=== PATIENT | female | born 1985 | race Caucasian/White ===

== ENCOUNTER 2018-02-04 07:16 | Inpatient (IN) | payer MEDICAID, SELFPAY ==
[2018-02-04 07:59] VITALS: BMI 35.6
[2018-02-04] MEDS ORDERED: Lactated Ringer's 1,000 ML IV ONE (08:02)
[2018-02-04] MEDS ORDERED: Oxytocin 30 UNIT 30 UNITS/500 ML BAG IV ONE (08:06)
[2018-02-04] MEDS ORDERED: Lidocaine 1% Inj (20ml) ONE (08:10)
[2018-02-04] MEDS ORDERED: OXYTOCIN/0.9 % NS 20 UNIT/1,000 ML BAG IV SCH (08:15)
[2018-02-04 08:40] LABS: BASO # 0.1 K/uL (0.0-0.2); BASO % 0.9 % (0.0-2.0); EOS # 0.2 K/uL (0.0-0.7); EOS % 2.2 % (0.0-4.0); LYMPH # 2.2 K/uL (1.0-4.3); LYMPH % 24.2 % (20.0-40.0); MEAN CELL VOLUME 71.3 fl (81.0-99.0); MEAN CORPUSCULAR HEMOGLOBIN 23.2 pg (27.0-31.0); MEAN CORPUSCULAR HGB CONC 32.5 g/dL (33.0-37.0); MEAN PLATELET VOLUME 10.5 fl (7.2-11.7); MONO # 0.6 K/uL (0.0-0.8); MONO % 6.2 % (0.0-10.0); NEUT # 6.1 K/uL (1.8-7.0); NEUT % 66.5 % (50.0-75.0); NRBC % 0.1 % (0.0-0.0); RBC 4.76 Mil/uL (3.80-5.20); RED CELL DISTRIBUTION WIDTH 16.5 % (11.5-14.5); WHITE BLOOD COUNT 9.1 K/uL (4.8-10.8)
[2018-02-04] MEDS ORDERED: Lactated Ringer's 1,000 ML IV SCH (09:30)
[2018-02-04] MEDS ORDERED: Benzocaine/Menthol SPRAY TOP PRN ×2 (13:18→15:26)
--- NOTE | 2018-02-04 13:18 | OBDS ---
DELIVERY PERSONNEL Nurse Lead Electrical Controls Engineer Certified: julia Delivery Doctor: Tammy Donaldson Nurse: julia Principal Technical Writer: LISA Phillips Anesthesiologist: julia Brush Operator: julia Resident: DR Corral MATERNAL INFORMATION Delivery Anesthesia: None Medications in Delivery: pitocin Estimated Blood Loss (ml): 200cc Placenta Cultured: No Maternal Complications: None RN Comments: uneventful to alive baby Boy; 9/9;with completed placenta delivery Provider Comments: at 39.6 delivered viable male infant @ 11:01 via with of 9/9, 3445 gm, over intact perineum. Procedure: of a viable male from cephalic presentation over intact perineum with no lac eration. Infants head delivered in a controlled manner. cried spontaneously and was placed on mother's stomach. Cord was doubled clamped and cut by resident. Placenta was delivered intact spon taneously and three vessel cords was noted. Intravenous fluid 500ml plus [id number] units were given. Cervix and vagina inspected for lacerations and none were noted. Estimated blood loss was 200cc. Case delivered with Dr Christopher MD OB Hospitalist note. Attended with OB fellow and PGY1...agree with note. MAHNDO LABOR SUMMARY EDC: 02/05/2018 00:00 No. Babies in Womb: 1 Attempted: No Labor Anesthesia: None LABOR INFORMATION Onset of Labor: 02/04/2018 06:00 Complete Dilatation: 02/04/2018 10:55 Oxytocin: N/A Group B Beta Strep: Negative Antibiotics # of Doses: 0 Antibiotics Time of Last Dose: na Steroids Given: None Reason Steroids Not Administered: Not Applicable Other Reason Not Administered: na MEMBRANES Membranes Rupture Method: Artificial Membranes Rupture Method: Artificial Rupture of Membranes: 02/04/2018 10:40 Rupture of Membranes: 02/04/2018 10:40 Length of Rupture (hrs): 0.35 Length of Rupture (hrs): 0.35 Amniotic Fluid Color: Clear Amniotic Fluid Color: Bloody Amniotic Fluid Amount: Moderate Amniotic Fluid Amount: Moderate Amniotic Fluid Odor: Normal Amniotic Fluid Odor: Normal STAGES OF LABOR Stage 1 hrs: 4 Stage 1 min: 55 Stage 2 hrs: 0 Stage 2 min: 6 Stage 3 hrs: 0 Stage 3 min: 8 Total Time in Labor hrs: 5 Total Time in Labor min: 9 VAGINAL DELIVERY Episiotomy: None Laceration Extension: N/A Laceration Type: None Other Laceration: na Laceration Repair: na Initial Vag Sponge Count: 6 Final Vag Sponge Count: 6 Initial Vag Sharps Count: 0 Final Vag Sharps Count: 0 Sponge Count Correct: Yes Sharps Count Correct: Yes Count Comment: correct count BABY A INFORMATION Infant Delivery Date/Time: 02/04/2018 11:01 Method of Delivery: Vaginal Born in Route : No : N/A Forceps: N/A Vacuum Extraction: N/A Shoulder Dystocia : No SHOULDER DYSTOCIA BABY A Infant Delivery Date/Time: 02/04/2018 11:01 PRESENTATION/POSITION BABY A Presentation: Cephalic Cephalic Presentation: Vertex Vertex Position: Left Occipital Anterior Breech Presentation: N/A PLACENTA INFORMATION BABY A Placenta Delivery Time : 02/04/2018 11:09 Placenta Method of Delivery: Spontaneous Placenta Status: Delivered SCORES BABY A Heart Rate 1 min: >100 bpm Resp Effort 1 min: Good Cry Reflex Irritability 1 min: Cough or Sneeze or Pulls Away Muscle Tone 1 min: Active Motion Color 1 min: Body [place], Extremities Blue SCORE 1 MIN: 9 Heart Rate 5 min: >100 bpm Resp Effort 5 min: Good Cry Reflex Irritability 5 min: Cough or Sneeze or Pulls Away Muscle Tone 5 min: Active Motion Color 5 min: Body [place], Extremities Blue SCORE 5 MIN: 9 INFORMATION BABY A Gestational Age at Delivery: 39.6 Gestational Status: Term Infant Outcome : Liveborn Condition : Stable Infant Sex: Male IDENTIFICATION/MEDS BABY A ID Band Number: [id number] CORD INFORMATION BABY A No. Cord Vessels: 3 Nuchal Cord : Around Neck x1, Loose Nuchal Cord Other: na True Knot: na Infant Cord pH Baby Arterial: na Infant Cord pH Baby Venous: na Cord Blood Taken: Yes Banking/Donate Info: na Infant Suction: None
--- NOTE | 2018-02-04 13:18 | OBHP ---
Datetime: 02/04/2018 09:15 IP Admit Plan: Admit to unit; Initiate labor protocol Pelvic Type - PN: Adequate Extremities - PN: Normal Abdomen - PN: Normal Back - PN: Not Done Breast - PN: Not Done Lungs - PN: Normal Heart - PN: Normal Thyroid - PN: Not Done Neurologic - PN: Not Done HEENT - PN: Normal General - PN: Normal FHR - Baseline A Provider: 140 EGA AdmitDate IP: 39.6 IP Indication for Induction: Not Applicable IP Chief Complaint: Uterine contractions; Maternal discomfort NICHD Variability Prov Fetus A: Moderate 6-25bpm NICHD Accel Fetus A IP Provider: [id number] NICHD Decel Fetus A IP Provider: None Dilatation, Provider: 7 Effacement, Provider: 100 Station, Provider: 0 Genitourinary Exam: Not Done DTRs - PN: Not Done Datetime: 02/04/2018 08:45 IP Adm Impression: Term, intrauterine ; Active labor; Intact Membranes Admit Comment, IP Provider: 32-year-old at 39.6 (confirmed via LMP) presents with intense ut erine contractions every 5-7 minutes since 6 am (2 hours prior to presentation). She denies vaginal b leeding or gush of fluid from vagina. Reports good movement. Previous 4 pregnancies were w ith no complications. was complicated by GDM, potentially noncompliant with diet as per her records. Largest baby was her last in 2017 at 7lbs. - [facility] PMH: denies Surgical Hx: denies Allergy: denies Meds: denies OBHx: x4 ROS: denies headache, dizziness, nausea, vomiting, chest pain, shortness of breath, diarrhea and c onstipation. PE: uncomfortable during ctxn CV: RRR Resp: no respiratory distress Abd: no tenderness to palpation VE: senior hr manager present: Labs: missing in records - [facility] due to fax over, as per telephone encounter with OBGYN nurse GBS negative Assessment: 32-year-old at 39.6 (confirmed via LMP) presents with intense uterine contract ions every 5-7 minutes since 6 am (2 hours prior to presentation). Plan: -Admit for normal progression of labor -IVF -Labs -Pain control PRN Patient seen and discussed with Dr Munoz. ---Ashley Herrera, PGY1 OB Hospitalist note. Pt seen with PGY1 and agree with note. MAHNDO Presentation-Admit: Vertex Membranes, Provider: Intact Pool Provider: Negative Vital Signs Provider: Reviewed; Within Normal Limits
[2018-02-04] MEDS ORDERED: Influenza Vaccine (5 YR UP)/PF 60 MCG/0.5 ML SYR IM ONE (19:01)
[2018-02-05 06:43] LABS: BASO % 0.2 % (0.0-2.0); EOS # 0.2 K/uL (0.0-0.7); HEMOGLOBIN 9.8 g/dL (12.0-16.0); LYMPH # 2.2 K/uL (1.0-4.3); LYMPH % 21.9 % (20.0-40.0); MEAN CELL VOLUME 71.1 fl (81.0-99.0); MEAN CORPUSCULAR HEMOGLOBIN 23.2 pg (27.0-31.0); MEAN CORPUSCULAR HGB CONC 32.6 g/dL (33.0-37.0); MEAN PLATELET VOLUME 10.5 fl (7.2-11.7); MONO # 0.5 K/uL (0.0-0.8); MONO % 5.3 % (0.0-10.0); NEUT # 7.2 K/uL (1.8-7.0); NEUT % 70.6 % (50.0-75.0); NRBC % 0.1 % (0.0-0.0); RBC 4.25 Mil/uL (3.80-5.20); RED CELL DISTRIBUTION WIDTH 16.5 % (11.5-14.5); WHITE BLOOD COUNT 10.2 K/uL (4.8-10.8)
[2018-02-05 07:39] LABS: RUBELLA AB (IGG) 4.48 index
--- NOTE | 2018-02-05 09:47 | OBPPN ---
Datetime: 02/05/2018 06:06 PP Pain Prov: Within normal limits PP Nausea Prov: Denies PP Flatus Prov: Yes PP BM Prov: No PP Breasts Prov: Not Done PP Heart Prov: Normal PP Lungs Prov: Normal PP Abdomen/Uterus Prov: Normal PP Lochia Prov: Normal PP Vulva/Perineum Prov: Normal PP CVA Tenderness Prov: Not Done PP Extremities Prov: Normal PP C/S Incision Prov: Not Applicable PP Progress Prov: Normal PP Impression Prov: Normal progression PP Plan Prov: Continue present management PP Progress Note Prov: S: Patient seen this morning at bedside, she is now s/p on 02/04/18 , today is PPD 1. Pt reports no complaints today. Reports minimal abdominal pain but states is better with pain medication. She is tolerating PO intake w/o N/V, ambulating to bathroom without any diffic ulties, lochia is less than menses in volume, Breast feeding w/o difficulty. Patient reports flatus b ut no BM as of yet. O: VS WNL PE: Patient is resting comfortably in her hospital bed. In no acute distress. HEENT: EOMI, Mucous membrane moist. RESP: Clear air entry bilaterally. CV: RRR, no murmurs, gallops or rubs. ABD: soft, non-tender, uterus firm below umbilicus LE: No edema, George's negative. A/P: 32 y/o now s/p on 02/04/18, today is PPD1- normal post- progression. Patient is stable to be D/C home. - Encourage ambulation - Encourage to continue - PNV 1 tab PO daily - Ibuprofen 600mg 1 tab Q6h prn for mild-mod pain - Anticipate D/C tomorrow, 02/06/18 Brenda Oneill MD PGY1 Patient was seen with the resident I agree with the note IP PP Procedures: None Vital Signs Provider PP: Reviewed; Within Normal Limits
[2018-02-06] MEDS ORDERED: Influenza Vaccine (5 YR UP)/PF 60 MCG/0.5 ML SYR IM ONE (07:00)
[2018-02-06 16:36] VITALS: BP 127/79; PULSE 82; RESP 18; TEMP 98.6; O2SAT 100
== END 2018-02-06 12:25 | disposition home or self-care (01) | DRG 372 ==
LOC: H.EROB2 07:16 → H.L&D 07:39 → H.EROB2 08:18 → H.OB/GYN 14:00
PROVIDERS: ADMIT Obstetrics & Gynecology; ATTEND Obstetrics & Gynecology
PROC: 10E0XZZ Delivery of Products of Conception, External Approach (ICD-10-PCS; principal; 2018-02-04)
PROC: 10907ZC Drainage of Amniotic Fluid, Therapeutic from Products of Conception, Via Natural or Artificial Opening (ICD-10-PCS; 2018-02-04)
PROC: 4A1HXCZ Monitoring of Products of Conception, Cardiac Rate, External Approach (ICD-10-PCS; 2018-02-04)
PROC: 3E02340 Introduction of Influenza Vaccine into Muscle, Percutaneous Approach (ICD-10-PCS; 2018-02-05)
DX: O24.420 Gestational diabetes mellitus in childbirth, diet controlled (principal); O69.81X0 Labor and delivery complicated by cord around neck, without compression, not applicable or unspecified; Z3A.39 39 weeks gestation of pregnancy; Z37.0 Single live birth; Z91.11 Patient's noncompliance with dietary regimen; Z23 Encounter for immunization